=== PATIENT | male | born 1950 | race Caucasian/White ===

== ENCOUNTER → 2016-12-29 | Outpatient (CLI) | payer OTHER | LOC: MMPC 09:00 | PROVIDERS: ATTEND Family Medicine | DX: M75.41 Impingement syndrome of right shoulder (principal); L98.9 Disorder of the skin and subcutaneous tissue, unspecified | CPT/HCPCS: 99212; G0463 ==

== ENCOUNTER → 2017-01-06 | Outpatient (CLI) | payer OTHER | LOC: MMPC 11:11 | PROVIDERS: ATTEND Surgery | DX: L91.8 Other hypertrophic disorders of the skin (principal) | CPT/HCPCS: 11200 ×2; G0463 ==